=== PATIENT | female | born 2000 | race Hispanic/Latino ===

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

== ENCOUNTER 2021-02-12 23:18 | Emergency (ER) | payer MEDICAID ==
[~2021-02-12 23:18] MED LIST: ESLI800T PO; LEVE-43 PO; TOPI200T PO
[2021-02-12 23:44] LABS: APPEARANCE,URINE Clear (CLEAR); BILIRUBIN,URINE Negative (NEGATIVE); COLOR,URINE Yellow (YELLOW); GLUCOSE, URINE (UA) Negative (NEGATIVE); KETONES,URINE Trace mg/dL (NEGATIVE); LEUKOCYTE ESTERASE ,URINE Trace (NEGATIVE); NITRATE,URINE Negative (NEGATIVE); OCCULT BLOOD,URINE Moderate (NEGATIVE); PROTEIN,URINE POS 1+ mg/dL (NEGATIVE)
[2021-02-12 23:47] LABS: HCG,QUAL RESULT NEGATIVE (NEGATIVE)
[2021-02-12 23:52] LABS: AMPHET/METH SCREEN,URINE NEGATIVE (NEGATIVE); BARBITURATE SCREEN, URINE NEGATIVE (NEGATIVE); BENZODIAZEPINES SCREEN,URINE NEGATIVE (NEGATIVE); CANNABINOID SCREEN,URINE NEGATIVE (NEGATIVE); COCAINE SCREEN,URINE NEGATIVE (NEGATIVE); OPIATE SCREEN,URINE NEGATIVE (NEGATIVE); PHENCYCLIDINE SCREEN,URINE NEGATIVE (NEGATIVE)
[2021-02-12 23:53] LABS: BACTERIA,URINE Few /HPF (None Seen); RBC,URINE 51-100 /HPF (0-1)
[2021-02-13] MEDS ORDERED: SODIUM CHLORIDE 0.9% 1000ML 2,000 ML IV ONE (00:04)
[2021-02-13] MEDS ORDERED: LEVETIRACETAM 500 MG/5 ML SD VIAL IV ONE ×2 (00:04→01:33)
[2021-02-13 00:52] LABS: CREATININE 0.8 mg/dL (0.5-1.5); POTASSIUM 3.9 mmol/L (3.5-5.1)
[2021-02-13 00:57] LABS: ALBUMIN 3.9 g/dL (3.5-5.0); BILIRUBIN,TOTAL 0.1 mg/dL (0.2-1.0); TOTAL PROTEIN, SERUM 7.8 g/dL (6.0-8.3)
[2021-02-13 01:06] LABS: EOSINOPHILS % (AUTO) 1.7 % (0.0-8.0); HEMATOCRIT 34.8 % (36-48); LYMPHOCYTES % (AUTO) 25.2 % (21.0-51.0); MEAN CORPUSCULAR HGB CONC 32.5 g/dL (32.0-36.0); MEAN CORPUSCULAR VOLUME 80.2 fL (80-100); MONOCYTES % (AUTO) 8.5 % (3.0-13.0); NEUTROPHILS % (AUTO) 63.1 % (40.0-77.0); PLATELET COUNT (AUTO) 243 K/uL (130-400); RED BLOOD CELL COUNT(AUTO) 4.34 MIL/uL (4.00-5.50); RED CELL DISTRIBUTION WIDTH 13.6 % (11.0-15.5); WHITE BLOOD COUNT (AUTO) 7.8 K/uL (4.8-10.8)
[2021-02-13] MEDS ORDERED: CEFTRIAXONE SODIUM 1 GM ONE (01:31)
[2021-02-13] MEDS ORDERED: OCTYL 2-CYANOACRYLATE 1 EACH TP ONE (01:34)
[2021-02-13] MEDS ORDERED: ONDANSETRON HCL 4 MG/2 ML VIAL ONE (01:47)
== END 2021-02-13 02:54 | disposition home or self-care (01) ==
LOC: EDH 23:18
DX: G40.89 Other seizures (principal); N39.0 Urinary tract infection, site not specified; E86.0 Dehydration; Z20.822 Contact with and (suspected) exposure to COVID-19; F84.0 Autistic disorder
CPT/HCPCS: 36415; 80053; 80305; 81001; 81025; 85025; 87426; 96365; 96366; 96368; 96375; 99284; J0696; J1953; J2405; J7030; U0003; 96367

== ENCOUNTER 2022-08-02 20:39 | Emergency (ER) | payer MEDICAID ==
[~2022-08-02] VITALS: Ht 149.9 cm; Wt 81.2 kg
[2022-08-02] MEDS ORDERED: DiphenhydrAMINE HCL 50 MG/ML VIAL IV ONE (21:30)
[2022-08-02] MEDS ORDERED: FAMOTIDINE 20MG VIAL IV ONE (21:30)
[2022-08-02] MEDS ORDERED: SOLU-MEDROL 125MG VIAL IVP ONE (21:30)
[2022-08-02] MEDS ORDERED: PRED20TA3 PO (22:58)
[2022-08-02] MEDS ORDERED: EPIN0.3P3 IJ (22:58)
[2022-08-02] MEDS ORDERED: FAMO-136 PO (22:58)
[2022-08-02] MEDS ORDERED: CETI1SOL17 PO (22:58)
[2022-08-02 23:16] VITALS: BP 132/81
== END 2022-08-02 23:17 | disposition home or self-care (01) ==
LOC: EDH 20:39
DX: T63.441A Toxic effect of venom of bees, accidental (unintentional), initial encounter (principal); T78.3XXA Angioneurotic edema, initial encounter; Y92.89 Other specified places as the place of occurrence of the external cause
CPT/HCPCS: 99284; 96374; 96375; J1200; J2930; S0028; J3490

== ENCOUNTER 2023-03-25 11:25 | Emergency (ER) | payer MEDICAID ==
[~2023-03-25] VITALS: Ht 170.2 cm; Wt 102.1 kg
[~2023-03-25 11:25] MED LIST changes: +CETI1SOL17 PO; +EPIN0.3P3 IJ; +FAMO-136 PO; +PRED20TA3 PO
[2023-03-25 14:34] LABS: BASOPHILS % (AUTO) 0.6 % (0.0-5.0); EOSINOPHILS % (AUTO) 1.7 % (0.0-8.0); HEMATOCRIT 32.7 % (36-48); LYMPHOCYTES % (AUTO) 30.3 % (21.0-51.0); MEAN CORPUSCULAR HEMOGLOBIN 25.2 pg (27.0-33.0); MEAN CORPUSCULAR HGB CONC 31.5 g/dL (32.0-36.0); MONOCYTES % (AUTO) 9.1 % (3.0-13.0); NEUTROPHILS % (AUTO) 57.6 % (40.0-77.0); PLATELET COUNT (AUTO) 271 K/uL (130-400); RED BLOOD CELL COUNT(AUTO) 4.09 MIL/uL (4.00-5.50); RED CELL DISTRIBUTION WIDTH 14.6 % (11.0-15.5); WHITE BLOOD COUNT (AUTO) 9.1 K/uL (4.8-10.8)
[2023-03-25 14:44] LABS: CREATININE 0.8 mg/dL (0.5-1.5)
[2023-03-25 14:48] LABS: ALBUMIN 4.2 g/dL (3.5-5.0); TOTAL PROTEIN, SERUM 7.9 g/dL (6.0-8.3)
[2023-03-25 16:57] LABS: APPEARANCE,URINE TURBID (CLEAR); BILIRUBIN,URINE NEGATIVE (NEGATIVE); COLOR,URINE YELLOW (YELLOW); GLUCOSE, URINE (UA) NEGATIVE (NEGATIVE); KETONES,URINE NEGATIVE (NEGATIVE); LEUKOCYTE ESTERASE ,URINE 25 Leu/uL (NEGATIVE); NITRATE,URINE NEGATIVE (NEGATIVE); OCCULT BLOOD,URINE NEGATIVE (NEGATIVE); PH,URINE 7.5 (5.0-8.0); PROTEIN,URINE 10 mg/dL (NEGATIVE)
[2023-03-25 17:00] LABS: BACTERIA,URINE FEW /HPF (None Seen); HCG,QUALITATIVE URINE NEGATIVE (NEGATIVE); SQUAMOUS EPITHELIAL CELL,UR MOD /HPF (0-2); YEAST,URINE BUDDING MOD /HPF (None Seen)
[2023-03-25] MEDS ORDERED: CEFTRIAXONE 1G VIAL IM SCH (17:00)
[2023-03-25] MEDS ORDERED: CEFTRIAXONE 1G VIAL ONE (17:11)
[2023-03-25] MEDS ORDERED: CEPH500B PO (17:55)
[2023-03-25] MEDS ORDERED: LACT10SO9 PO (17:55)
== END 2023-03-25 18:05 | disposition home or self-care (01) ==
LOC: EDH 11:25
DX: N39.0 Urinary tract infection, site not specified (principal); K59.00 Constipation, unspecified; Z90.49 Acquired absence of other specified parts of digestive tract; Z79.899 Other long term (current) drug therapy; Z98.890 Other specified postprocedural states
CPT/HCPCS: 99284; 80053; 83690; 85025; 87088; 81001; 81025; 36415; 74018; 96372; J0696

== ENCOUNTER 2023-11-09 18:05 | Emergency (ER) | payer MEDICAID ==
[~2023-11-09] VITALS: Ht 167.6 cm; Wt 99.8 kg
[~2023-11-09 18:05] MED LIST changes: +CEPH500B PO; +LACT10SO9 PO
[2023-11-09 18:09] VITALS: BP 129/84; PULSE 108; RESP 20
[2023-11-09 18:38] LABS: BASOPHILS # (AUTO) 0.04 K/uL (0.00-0.20); BASOPHILS % (AUTO) 0.4 % (0.0-5.0); EOSINOPHILS # (AUTO) 0.05 K/uL (0.00-0.70); EOSINOPHILS % (AUTO) 0.5 % (0.0-8.0); HEMATOCRIT 31.9 % (36-48); IMMATURE GRANULOCYTE ABSOLUTE 0.06 K/uL (0-1); LYMPHOCYTES # (AUTO) 1.6 K/uL (1.0-4.8); LYMPHOCYTES % (AUTO) 15.6 % (21.0-51.0); MEAN CORPUSCULAR HEMOGLOBIN 22.5 pg (27.0-33.0); MEAN CORPUSCULAR HGB CONC 30.4 g/dL (32.0-36.0); MONOCYTES # (AUTO) 0.8 K/uL (0.1-1.0); MONOCYTES % (AUTO) 8.1 % (3.0-13.0); NEUTROPHILS # (AUTO) 7.6 K/uL (1.8-7.7); NEUTROPHILS % (AUTO) 74.8 % (40.0-77.0); PLATELET COUNT (AUTO) 264 K/uL (130-400); RED BLOOD CELL COUNT(AUTO) 4.31 MIL/uL (4.00-5.50); RED CELL DISTRIBUTION WIDTH 17.2 % (11.0-15.5); WHITE BLOOD COUNT (AUTO) 10.2 K/uL (4.8-10.8)
[2023-11-09 18:58] LABS: CREATININE 0.8 mg/dL (0.5-1.5); POTASSIUM 3.6 mmol/L (3.5-5.1)
[2023-11-09 19:03] LABS: ALBUMIN 3.8 g/dL (3.5-5.0); BILIRUBIN,TOTAL 0.2 mg/dL (0.2-1.0); TOTAL PROTEIN, SERUM 7.4 g/dL (6.0-8.3)
== END 2023-11-09 21:17 | disposition home or self-care (01) ==
LOC: EDH 18:05
DX: R56.9 Unspecified convulsions (principal); Z79.899 Other long term (current) drug therapy; Z98.890 Other specified postprocedural states
CPT/HCPCS: 36415; 80053; 80177; 82542; 85025

== ENCOUNTER 2023-12-03 17:50 | Emergency (ER) | payer MEDICAID ==
[~2023-12-03] VITALS: Ht 157.5 cm; Wt 84.8 kg
[2023-12-03 18:28] VITALS: BP 112/56; PULSE 113; RESP 18
[2023-12-03] MEDS ORDERED: CLIN-141 PO (19:53)
[2023-12-03] MEDS ORDERED: IBUP-2077 PO (19:53)
[2023-12-03] MEDS: IBUPROFEN 800 MG TAB PO ONE (20:00)
[2023-12-03] MEDS: CLINDAMYCIN 150 MG CAP PO ONE (22:55)
== END 2023-12-03 23:09 | disposition home or self-care (01) ==
LOC: EDH 17:50
DX: K08.89 Other specified disorders of teeth and supporting structures (principal); K06.8 Other specified disorders of gingiva and edentulous alveolar ridge

== ENCOUNTER 2024-01-12 21:28 | Emergency (ER) | payer MEDICAID ==
[~2024-01-12] VITALS: Ht 167.6 cm; Wt 88.5 kg
[~2024-01-12 21:28] MED LIST changes: +CLIN-141 PO; +IBUP-2077 PO
[2024-01-12] MEDS: HYDROCODONE/ACETAMINOPHEN 5/325 MG TAB PO ONE (22:16)
[2024-01-12 23:52] VITALS: BP 120/72; PULSE 81; RESP 17; O2SAT 97
== END 2024-01-13 00:09 | disposition home or self-care (01) ==
LOC: EDH 21:28
DX: S00.83XA Contusion of other part of head, initial encounter (principal); Z79.52 Long term (current) use of systemic steroids; W18.39XA Other fall on same level, initial encounter; Y93.89 Activity, other specified; Y92.89 Other specified places as the place of occurrence of the external cause; Y99.8 Other external cause status
CPT/HCPCS: 70450; 70486; 72125